=== PATIENT | male | born 1980 | race Caucasian/White ===

== ENCOUNTER 2016-12-11 17:57 | Emergency (ER) ==
[2016-12-11 18:08] VITALS: BP 211/120; TEMP 100.5; BMI 24.8
--- NOTE | 2016-12-11 18:18 | ED.PDOC ---
General ED Provider: Dr. 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 Doesn't recall injury. Noticed puncture wound on right index finger when he got home. Tried to squeeze something out without result. Never painful but this AM area around it was swollen and eyrthematous. this afternoon noticed streaking going up his and and forearm from it. Came to ED for evaluation. Time Seen by Physician: 18:10 Mode of Arrival: Walk-In Information Source: Patient Exam Limitations: No limitations Primary Care Provider: LE WASHINGTON Nursing and Triage Documentation Reviewed and Agree: Yes Skin Complaint Exam - Skin/Soft Tissue Complaint/Exam Onset/Duration: 1 day Symptoms Are: Still present Timing: Constant Initial Severity: Mild Current Severity: Moderate Location: right index finger proximal phalanx palmar side Character: Reports: Redness, Swelling, Raised, Painful Aggravating: Reports: Touch Alleviating: Reports: None Associated Signs and Symptoms: Reports: Tenderness, Red streaks Related Surgical History: Reports: None Recent Exposure to Others w/Similar Symptoms: No Skin Findings: Present: Erythema Joint Tenderness Present: No Differential Diagnoses: Cellulitis Review of Systems - Review Of Systems Constitutional: Reports: No symptoms Respiratory: Reports: No symptoms Cardiac: Reports: No symptoms Musculoskeletal: Reports: No symptoms Skin: Reports: Change in color (erythema and swelling about puncture wound with eryth streaking up hand and forearm) Neurological: Reports: No symptoms All Other Systems: Reviewed and Negative Past Medical History - Past Medical History Previously Healthy: Yes Endocrine: Reports: None Cardiovascular: Reports: None Respiratory: Reports: None Hematological: Reports: None Gastrointestinal: Reports: None Genitourinary: Reports: None Neuro/Psych: Reports: None Musculoskeletal: Reports: None Cancer: Reports: None - Surgical History General Surgical History: Reports: None - Family History Family History: Reports: None - Social History Smoking Status: Current every day smoker, Light tobacco smoker Hx Substance Use: No Alcohol Screening: Heavy Lives: Alone - Immunizations Tetanus Shot up to Date: Yes Influenza Vaccine within 12 Months: No Pneumococcal Vaccine up to Date: No Physical Exam - Physical Exam Appearance: Well-appearing, No pain distress, Well-nourished Ill-appearing: None Pain Distress: None Musculoskeletal: Normal strength, ROM intact, No edema, No calf tenderness Skin: Warm (Tenderness, swelling and erythema of right index finger prox phalanx palmar side with puncture wound at its center. No palpable FB. Streaking up right hand and forearm.) Neurological: Sensation intact, Motor intact, Reflexes intact, Cranial nerves intact, Alert, Oriented Psychiatric: Affect appropriate, Mood appropriate Critical Care Note - Critical Care Note Total Time (mins): 0 Course - Course Vital Signs: Temp Pulse Resp BP Pulse Ox 12/11/16 17:59 100.5 F H 98 H 20 211/120 H 98 Departure - Departure Time of Disposition: 18:23 Disposition: HOME SELF-CARE Discharge Problem: Cellulitis of right index finger Instructions: Cellulitis (ED) Condition: Good Pt referred to PMD for follow-up: Yes (see PCP in 3 days for recheck) Allergies/Adverse Reactions: Allergies No Known Allergies Allergy (Unverified 12/11/16 18:08) Home Medications: Ambulatory Orders Sulfamethoxazole/Trimethoprim [Bactrim Susp 200/40 mg/5 ml] 10 ml PO BID #200 ml 12/11/16
== END 2016-12-11 18:32 | disposition home or self-care (01) ==
LOC: ED 17:57
DX: L03.011 Cellulitis of right finger (principal); F17.210 Nicotine dependence, cigarettes, uncomplicated
CPT/HCPCS: 99282